=== PATIENT | female | born 1995 | race Hispanic/Latino ===

== ENCOUNTER 2024-11-19 19:11 | Emergency (ER) | payer OTHER, SELFPAY ==
[2024-11-19 19:15] VITALS: BP 137/86
--- NOTE | 2024-11-19 19:49 | ED.GENMED ---
History of Present Illness
General
Chief Complaint: Musculo-Skeletal Complaint
Time Seen by Provider: 11/19/24 19:35
History of Present Illness
History of Present Illness:
Patient presents to the emergency department with left-sided wrist pain. States pain has been present for the past 6 months but yesterday got much worse. Notes that she was having pain and went to an urgent care about 6 months ago had a x-ray and
was told it was a sprain. States the pain never fully went away but improved. Yesterday she pushed off that hand and felt a sharp pain on the ulnar side of her wrist. Since then it is hurt with any type of movement or grabbing motion. No
numbness or tingling. Asking for an MRI.
Phy Exam
Physical Exam
Physical Exam:
General: No acute distress
Head: NCAT
Neck, Normal in appearance, no swelling
Respiratory: No Respiratory distress
Abdomen: No distension
Ext: no edema, there is tenderness at the ulnar portion of the wrist and hand. There is no deformity. There is no scaphoid tenderness. There is pain with any range of motion of the wrist. There is no crepitus. Cap refill intact in all digits.
Sensation intact to touch in all digits
Neuro: CLARK, AOx4
Psych: Normal affect
Skin: Normal color
Course
Orders/Labs/Results
Orders:
Orders
11/19/24 19:48
Splint [Braces/Immobilizers] As Directed
Type of Brace/Immobilizer: Other
Other brace/immobilizer: L wrist splint
CR Wrist - Left Min 3 Views Urgent
Comment:
Reason For Exam: wrist pain
Vital Signs
Initial and Last Documented VS:
Initial Vital Signs
Temp Pulse Resp BP Pulse Ox
98.1 F 69 19 137/86 100
11/19/24 19:15 11/19/24 19:15 11/19/24 19:15 11/19/24 19:15 11/19/24 19:15
Last Documented Vital Signs
Temp Pulse Resp BP Pulse Ox
98.1 F 65 14 94/54 100
11/19/24 19:15 11/19/24 20:31 11/19/24 20:31 11/19/24 20:31 11/19/24 20:31
*Pulse Oximetry
SaO2: 100
Oxygen Mode of Delivery: Room air
Patient hypoxic: no
*Critical Care Note
Total Time (30-74mins, 75-104mins- exclusive of procedures): Not Applicable
ED Attending Note
ED Attending Note
ED Attending Note:
Suspect ligamentous or cartilaginous injury. Will x-ray to rule out bony abnormality, placed in splint, instructed follow-up with orthopedics for further workup and evaluation
-
Portions of this chart may have been created with voice recognition software.� Occasional wrong word or��sound alike� substitutions may have occurred due to the inherent limitations of voice recognition software.
Discharge Plan
Departure
Patient Disposition: Home (Routine Discharge)
Date of Disposition: 11/19/24
Time of Disposition: 20:23
Patient with high blood pressure during this ER visit?: No
Discharge Problem:
Acute wrist pain
Instructions: Wrist Fracture (DC)
Referrals:
Jorge Helm MD [Active, Orthopedics]
Sherri Bullock MD [Family Provider, Internal Medicine]
Activity Restrictions/Additional Instructions:
Xray shows possibly a small non displaced fracture of the ulnar styloid. Please follow up with the orthopedist for outpatient testing and management.
Interventions
Interventions:
*Risk Screen - Suicide Last Done: 11/19/24 19:15
*General Assessment Last Done: 11/19/24 19:15
*Neglect/Abuse Screening Last Done: 11/19/24 19:15
*Nursing Disposition Last Done: 11/19/24 20:34
ED-Musculoskeletal Assessment Last Done: 11/19/24 20:31
Discharge Date and Time
Discharge Date/Time: 11/19/24 20:34
Print Language: HUNGARIAN
[2024-11-19 20:31] VITALS: BP 94/54
== END 2024-11-19 20:34 | disposition home or self-care (01) ==
LOC: EMR 19:11
PROVIDERS: EMERGENCY PHYSICIAN Emergency Medicine; FAMILY PHYSICIAN Internal Medicine
DX: M25.532 Pain in left wrist (principal)
CPT/HCPCS: 99283; 29125; 73110